=== PATIENT | male | born 1955 | race Caucasian/White ===

== ENCOUNTER 2024-08-28 20:03 | Emergency (ER) | payer MEDICARE ==
[2024-08-28] MEDS ORDERED: Xylocaine 2%-Epi 1:100,000 MDV IJ ONE (20:22)
[2024-08-28 20:24] VITALS: RESP 16; TEMP 97.5
--- NOTE | 2024-08-28 20:43 | ERPHSYRPT ---
- History of Present Illness Source: patient Exam Limitations: no limitations Patient Subjective Stated Complaint: pt states that he was chasing a dog around the pool table and slipped and hit his head on the table Triage Nursing Assessment: pt ambulated into the er; pt is axo x4; c/o laceration to head; pt states 7/10 pain to rt side of head; laceration present to rt forehead; laceration measure 4.5 cm x 0.5 cm rt forehead; minimal bleeding present; wound care done at time of triage; skin PDW; vitals wnl; no respiratory distress present Physician History: Patient fell while trying to catch his dog. He landed on the corner of a table. He did not lose consciousness. He is 69 years old. He has no neurological deficits. He has no headache. He has about a 4 cm laceration on his right upper forehead. He has no other trauma or injuries. Occurred: this evening Allergies/Adverse Reactions: No Known Drug Allergies Allergy (Verified 08/28/24 20:12) Home Medications: No Reportable Medications [No Reported Medications] 02/17/14 [History] Hx Tetanus, Diphtheria Vaccination/Date Given: Yes Hx Influenza Vaccination/Date Given: No Hx Pneumococcal Vaccination/Date Given: No Travel Risk - International Travel Have you traveled outside of the country in past 3 weeks: No - Emerging Infectious Disease Are you exhibiting symptoms associated with any current EIDs: No - Review of Systems Constitutional: No Symptoms Eyes: No Symptoms Ears, Nose, & Throat: No Symptoms Skin: No Symptoms Neurological: No Symptoms - Past Medical History Pertinent Past Medical History: Yes Neurological History: No Pertinent History ENT History: No Pertinent History Cardiac History: Other Respiratory History: No Pertinent History Endocrine Medical History: Hypoglycemia Musculoskeletal History: Fractures GI Medical History: GERD History: No Pertinent History Psycho-Social History: No Pertinent History Male Reproductive Disorders: No Pertinent History Other Medical History: MVP - Past Surgical History Past Surgical History: Yes Neuro Surgical History: No Pertinent History Cardiac: No Pertinent History Respiratory: No Pertinent History Gastrointestinal: Hernia Repair Genitourinary: No Pertinent History Musculoskeletal: Orthopedic Surgery Male Surgical History: No Pertinent History Other Surgical History: right ankle repair - Social History Smoking Status: Never smoker Exposure to second hand smoke: No Drug Use: none - Social Determinants of Health Will the patient participate in the screening: Yes Do you worry about a steady place to live?: No Do you have any problems with any of the following?: No known problems In the past 12 months,have you had to go without utilities?: No Transportation Issues: No Has anyone in your support network made you feel unsafe?: No Have you or anyone in your house had to go without enough: No - Nursing Vital Signs Nursing Vital Signs: Initial Vital Signs Temperature 97.5 F 08/28/24 20:12 Pulse Rate 81 08/28/24 20:12 Respiratory Rate 16 08/28/24 20:12 Blood Pressure 131/75 08/28/24 20:12 O2 Sat by Pulse Oximetry 97 08/28/24 20:12 Pain Scale Pain Intensity 2 - [place] Coma Score Best Eye Response ([place]): (4) open spontaneously Best Verbal Response ([place]): (5) oriented Best Motor Response ([place]): (6) obeys commands Bill Total: 15 - Physical Exam General Appearance: no apparent distress Head Injury: lacerations (4 cm deep laceration to his right forehead. Is linear.) Eye Exam: bilateral eye: normal inspection, PERRL, EOMI ENT Exam: airway nml, evidence of ENT injury Neck Exam: supple, trachea midline, full range of motion Cardiovascular/Respiratory Exam: chest non-tender, normal breath sounds Mental Status Exam: alert, oriented x 3, cooperative firearms specialist Exam: normal hearing, normal speech, PERRL, abnormal eye position Coordination/Gait Exam: normal gait, normal cerebellar function Motor/Sensory Exam: no motor deficit, no sensory deficit Skin Exam: normal color SpO2: 97 Procedures - Laceration/Wound Repair Right Frontal Time of Procedure: 20:40 Wound Length (cm): 4 (Centimeters) Wound's Depth, Shape: into muscle Wound Explored: clean Irrigated: Yes Hibiclens Prep: Yes Anesthesia: local, 1% Lidocaine Volume Anesthetic (ccs): 5 Wound Debrided: minimal Wound Repaired With: sutures Suture Size/Type: 5-0 Number of Sutures: 15 Layer Closure?: No Sterile Dressing Applied?: Yes Progress: The area was anesthetized with lidocaine. Good anesthesia was obtained. The wound was then thoroughly cleaned and explored in a bloodless field. We could palpate the skull. There is no deficits or defects in the skull. There is no involvement of nerves vessels tendons. The wound was repaired with 5-0 Ethilon in running fashion. 08/28/24 20:41 - Course Nursing assessment & vital signs reviewed: Yes Ordered Tests: Active Orders 24 hr Category Date Time Status HEAD WITHOUT CONTRAST [CT] Stat Exams 08/28/24 20:36 Completed Medication Summary Discontinued Medications Generic Name Dose Route Start Last Admin Trade Name Elkin PRN Reason Stop Dose Admin Lidocaine/Epinephrine Confirm 08/28/24 20:22 Lidocaine Hcl/Epinephrine 2% 20 Ml Mdv Administered 08/28/24 20:23 Dose 1 ml IJ .STK-MED ONE Lidocaine/Epinephrine 5 ml 08/28/24 21:27 08/28/24 21:30 Lidocaine Hcl/Epinephrine 1% 20 Ml IJ 08/28/24 21:28 5 ml STAT ONE Administration Lidocaine/Epinephrine Confirm 08/28/24 21:29 Lidocaine Hcl/Epinephrine 1% 20 Ml Administered 08/28/24 21:30 Dose 5 ml .ROUTE .STK-MED ONE - Progress Progress: improved Progress Note: I am going to get a head CT on him because of the violence of the fall and his age.Head CT showed no acute abnormalities. The patient is stable for discharge. He is going to get the sutures Out in 6-7 days. 08/28/24 20:42 08/28/24 22:06 Medical Desision Making - Independent Historian Additional History obtained from: Spouse - Risk of complications Minimal Risk: Minimal risk of morbidity - Departure Departure Disposition: Home Clinical Impression: Laceration of forehead, Head contusion Condition: Stable Critical Care Time: No Instructions: Laceration Repair With Stitches (DC)
[2024-08-28] MEDS ORDERED: XYLOCAINE 1%/Epi 1:100000 MDV 20 ML ONE (21:29)
[2024-08-28] MEDS: XYLOCAINE 1%/Epi 1:100000 MDV 20 ML IJ ONE (21:30)
--- NOTE | 2024-08-28 22:02 | XRAY ---
CLINICAL HISTORY: trauma COMPARISON: none TECHNIQUE: Axial noncontrast CT scan of the brain was performed from the skull base to the high parietal region. One of the following dose reduction techniques was utilized for this exam.Automated exposure control, adjustment of the mA and/or kV according to patient size, and use of iterative reconstruction. FINDINGS: No intracerebral or extra axial hematoma. There are few tiny ill-defined iso-to hypodense areas noted in the subcortical white matter bilaterally, suggestive of microvascular ischemic changes. The ventricular system, cortical sulci and basal cisterns are prominent and consistent with senile changes. The visualized brain parenchyma shows normal appearance. Torres-white matter differentiation is maintained. No midline shifts or deformity. Normal size and configuration of the cerebral ventricles. Normal CT appearance of the posterior fossa structures namely the cerebellar hemispheres, brainstem and cerebellar peduncles. The IACs are unremarkable. The cerebello-pontine angles are clear. The osseous structures in the skull base are unremarkable. No definite calvarium fractures. The scanned paranasal sinuses are clear. Mild scalp soft tissue swelling and hematoma with emphysema in the right frontal region. IMPRESSION: 1. No acute intracranial abnormalities. 2. The above-mentioned findings are suggestive of mild microvascular ischemic changes and senile changes. 3. Mild scalp soft tissue swelling and hematoma with emphysema in the right frontal region. Electronically Signed by: Shalini Lockwood MD. (08/28/2024 21:57:55 EST)
[2024-08-28 22:04] VITALS: BP 107/66; PULSE 72
[2024-08-28 22:07] VITALS: O2SAT 97
== END 2024-08-28 22:14 | disposition home or self-care (01) ==
LOC: ED 20:03
DX: S01.81XA Laceration without foreign body of other part of head, initial encounter (principal); W01.190A Fall on same level from slipping, tripping and stumbling with subsequent striking against furniture, initial encounter
CPT/HCPCS: 12002; 70450; 99284